=== PATIENT | female | born 1960 | race Caucasian/White ===

== ENCOUNTER 2024-11-06 00:49 | Emergency (ER) | payer BC ==
--- NOTE | 2024-11-06 02:19 | EDPHYS ---
Physician Documentation [facility] Name: Toshia Zaman Age: 64 yrs Sex: Female : 1960 Arrival Date: 11/06/2024 Time: 00:49 Bed 6 Private MD: ED Physician Zachery Corrigan HPI: 11/06 02:01 This 64 yrs old Female presents to ER via Wheelchair with complaints of Altered Mental bo1 Status. 02:01 The patient presents with agitation, After being seen \\T\\ [facility] milligan for a migraine SAN bo1 and treated. Records reviewed. . Onset: The symptoms/episode began/occurred suddenly, after being treated with various meds IV. The pt was taken from [facility] by the sister who did not feel that care was being done timely. 02:07 Possible causes: Abnl MRI - recently done showing lots of "black spots" and progressive bo1 vision decline. Pt also sleeps with the TV or phone being on all the time. She wears protective lenses in a dark bedroom. . Associated signs and symptoms: Pertinent positives: agitation, Initially some hallucinations this PM with dx of dementia/Alzheimer's. Pt lives with sister - caregiver. Hx of gastric bypass and malnutrition.. Current symptoms: In the emergency department the patient's symptoms have resolved. See [facility] MAR: Ativan, ketorolac, morphine. zofran and reglan IV given tonight 6-7pm. Historical: - Allergies: 01:13 No Known Allergies; bm8 - Home Meds: :13 Unable to obtain [Active]; bm8 - PMHx: :13 Unable to Obtain; bm8 - PSHx: :13 Unable to Obtain; bm8 - Immunization history:: Adult Immunizations up to date. - Infectious Disease History:: Denies. - Social history:: Smoking status: Patient denies any tobacco usage or history of. ROS: 02:11 Constitutional: Negative for fever, chills, and weight loss bo1 02:11 Eyes: Positive for blurry vision, visual disturbance, Hx of same/chronic nature, wears reading glasses, 02:11 Neck: Negative for pain with movement, pain at rest, 02:11 Cardiovascular: Negative for chest pain, 02:11 Respiratory: Negative for shortness of breath, 02:11 Skin: Negative for rash, 02:11 Neuro: Positive for headache, Was the reason to be seen at [facility]. Now resolved, 02:11 All other systems are negative, Exam: 02:13 Constitutional: This is a well developed, well nourished patient who is in no acute bo1 distress. 02:13 Constitutional: The patient appears in no acute distress, comfortable, Asleep but arousable 02:13 Head/face: Exam is negative for acute changes, 02:13 Eyes: Pupils: no acute changes, equal, \\T\\ 3 mm, 02:13 Cardiovascular: Rate: normal, Rhythm: regular, Pulses: no pulse deficits are appreciated, 02:13 Respiratory: the patient does not display signs of respiratory distress, Respirations: normal, Breath sounds: are clear throughout, 02:13 Musculoskeletal/extremity: Swelling, tenderness is absent. 02:13 Skin: no rash present. 02:13 Neuro: Abnormal movements: there are no abnormal movements, Pt now at baseline and much more comfortable after leaving [facility] times 2nd visit from the waiting room, Vital Signs: 01:11 BP 117 / 64; Pulse 75; Resp 18; Temp 97.5; Pulse Ox 97% ; Weight 64.86 kg; Height 5 ft. bm8 3 in. ; Pain 0/10; 02:27 BP 124 / 66; Pulse 64; Resp 18; Temp 97.5; Pulse Ox 92% ; Pain 0/10; bm8 01:11 Body Mass Index 25.33 (64.86 kg, 160.02 cm) bm8 01:11 Pain Scale: Adult bm8 02:27 Pain Scale: Adult bm8 [place] Coma Score: 01:13 Eye Response: to voice(3). Motor Response: obeys commands(6). Verbal Response: bm8 oriented(5). Total: 14. 02:27 Eye Response: spontaneous(4). Motor Response: obeys commands(6). Verbal Response: bm8 oriented(5). Total: 15. MDM: 02:00 Medical Screening Exam initiated bo1 02:15 Differential Diagnosis: Medication reaction/side effect. Migraine SAN. Dementia or bo1 Alzheimer's exacerbation.. Data reviewed: vital signs, diagnostic data from outside facility. ED course: Due to pt now at her usual baseline. She is to be returned home with sister in care of her as agreed upon. Meds are to be allowed to wear off. Administered Medications: No medications were administered Disposition Summary: 11/06/24 02:18 Discharge Ordered Notes: Location: Home bo1 Problem: new bo1 Symptoms: have improved bo1 Condition: Stable bo1 Diagnosis - Altered mental status, unspecified bo1 Followup: bo1 - With: Private Physician - When: Upon discharge from the Emergency Department - Reason: Recheck today's complaints, Continuance of care Discharge Instructions: - Discharge Summary Sheet bo1 - Confusion bo1 Forms: - Medication Reconciliation Form bo1 - Antibiotic Education bo1 - Prescription Opioid Use bo1 - Patient Portal Instructions bo1 - Leadership Thank You Letter bo1 Signatures: Zachery Corrigan MD MD bo1 Zachariah Pastrana RN RN bm8
--- NOTE | 2024-11-06 02:19 | ER ---
Nurse's Notes [facility] Name: Toshia Zaman Age: 64 yrs Sex: Female : 1960 Arrival Date: 11/06/2024 Time: 00:49 Bed 6 Private MD: Diagnosis: Altered mental status, unspecified Presentation: 11/06 01:13 Chief complaint: sister states she was at [facility] for a migraine, was given a bunch vc1 of medications. Once we got home she started hallucinating saying she didn't know where she was, complaining of stomach pain and that she was nauseous. Coronavirus screen: Client denies travel out of the [place] in the last 14 days. At this time, the client does not indicate any symptoms associated with coronavirus-19. Ebola Screen: Patient negative for fever greater than or equal to 101.5 degrees Fahrenheit, and additional compatible Ebola Virus Disease symptoms Patient denies exposure to infectious person. Patient denies travel to an Ebola-affected area in the 21 days before illness onset. No symptoms or risks identified at this time. Initial Sepsis Screen: Does the patient meet any 2 criteria? No. Patient's initial sepsis screen is negative. Does the patient have a suspected source of infection? No. Patient's initial sepsis screen is negative. Risk Assessment: Do you want to hurt yourself or someone else? Patient reports no desire to harm self or others. Onset of symptoms was November 06, 2024. Care prior to arrival: Medication(s) given: 1L NS, Ativan 2mg, Ketoralac 60 mg, Morphine 4mg IVP, zofran 4 mg, Reglan 10mg IVPB. Activity prior to arrival: None. Mechanism of Injury: No Mechanism of Injury. Transition of care: patient was not received from another setting of care. 01:13 Method Of Arrival: Wheelchair vc1 01:13 Acuity: YOAN 4 vc1 Triage Assessment: General: Appears in no apparent distress. slender, well groomed, well developed, well vc1 nourished, Behavior is cooperative, flat, quiet. Pain: Denies pain. EENT: No deficits noted. No signs and/or symptoms were reported regarding the EENT system. Neuro: Level of Consciousness is awake, alert, obeys commands, Oriented to person, place, time, situation, Appropriate for age. Cardiovascular: Capillary refill < 3 seconds Patient's skin is warm and dry. Respiratory: Airway is patent Respiratory effort is even, unlabored, Respiratory pattern is regular, symmetrical. GI: Patient currently denies nausea, pain, vomiting. : No deficits noted. No signs and/or symptoms were reported regarding the genitourinary system. Derm: Skin is intact, is healthy with good turgor, Skin is dry, Skin is normal, Skin temperature is warm. Musculoskeletal: No deficits noted. No signs and/or symptoms reported regarding the musculoskeletal system. Historical: - Allergies: : No Known Allergies; bm8 - Home Meds: : Unable to obtain [Active]; bm8 - PMHx: Unable to Obtain; bm8 - PSHx: : Unable to Obtain; bm8 - Immunization history:: Adult Immunizations up to date. - Infectious Disease History:: Denies. - Social history:: Smoking status: Patient denies any tobacco usage or history of. Screenin: [facility] ED Fall Risk Assessment (Adult) History of falling in the last 3 months, bm8 including since admission No falls in past 3 months (0 pts) Confusion or Disorientation No (0 pts) Intoxicated or Sedated No (0 pts) Impaired Gait No (0 pts) Mobility Assist Device Used No (0 pt) Altered Elimination No (0 pt) Score/Fall Risk Level 0 - 2 = Low Risk Oriented to surroundings, Maintained a safe environment, Educated pt \T\ family on fall prevention, incl call for assistance when getting out of bed, Assessed \T\ reinforced patient's understanding of fall precautions, Hourly rounding (assess needs \T\ fall precautionary measures) done, Used ambulatory aids as needed (educated on \T\ assisted with), Used gait belt as appropriate. Abuse screen: Denies threats or abuse. Nutritional screening: No deficits noted. Tuberculosis screening: No symptoms or risk factors identified. Assessment: :11 Reassessment: Patient appears in no apparent distress at this time. Patient and/or bm8 family updated on plan of care and expected duration. Pain level reassessed. Patient denies pain at this time. Patient states feeling better. Patient states symptoms have improved. General: Appears in no apparent distress. comfortable, Behavior is calm, cooperative, appropriate for age. Pain: Denies pain. Neuro: No deficits noted. Level of Consciousness is alert, obeys commands, Oriented to person, place, time, situation, Appropriate for age Facilities Engineer are equal bilaterally Moves all extremities. Full function Speech is normal, Facial symmetry appears normal, Pupils are PERRLA, Pupil Size: 3 mm. Cardiovascular: No deficits noted. Capillary refill < 3 seconds in bilateral fingers Patient's skin is warm and dry. Respiratory: Airway is patent Trachea midline Respiratory effort is even, unlabored, Respiratory pattern is regular, symmetrical. GI: Patient currently denies abdominal pain, nausea, pain, vomiting. : No signs and/or symptoms were reported regarding the genitourinary system. Denies burning with urination, pain urinary frequency. EENT: No signs and/or symptoms were reported regarding the EENT system. Derm: No signs and/or symptoms reported regarding the dermatologic system. Derm: No signs and/or symptoms reported regarding the dermatologic system. Musculoskeletal: No signs and/or symptoms reported regarding the musculoskeletal system. 02:27 Reassessment: Patient appears in no apparent distress at this time. No changes from bm8 previously documented assessment. Patient and/or family updated on plan of care and expected duration. Pain level reassessed. Patient denies pain at this time. Patient states feeling better. Patient states symptoms have improved. Vital Signs: 01:11 BP 117 / 64; Pulse 75; Resp 18; Temp 97.5; Pulse Ox 97% ; Weight 64.86 kg; Height 5 ft. bm8 3 in. ; Pain 0/10; 02:27 BP 124 / 66; Pulse 64; Resp 18; Temp 97.5; Pulse Ox 92% ; Pain 0/10; bm8 01:11 Body Mass Index 25.33 (64.86 kg, 160.02 cm) bm8 01:11 Pain Scale: Adult bm8 02:27 Pain Scale: Adult bm8 [place] Coma Score: 01:13 Eye Response: to voice(3). Motor Response: obeys commands(6). Verbal Response: bm8 oriented(5). Total: 14. 02:27 Eye Response: spontaneous(4). Motor Response: obeys commands(6). Verbal Response: bm8 oriented(5). Total: 15. ED Course: 00:54 Patient arrived in ED. vc1 01:10 Zachariah Pastrana, RN is Primary Nurse. bm8 01:13 Patient has correct armband on for positive identification. Bed in low position. Call bm8 light in reach. Side rails up X2. Adult w/ patient. Client placed on continuous cardiac and pulse oximetry monitoring. NIBP monitoring applied. Pulse ox on. NIBP on. Door closed. Noise minimized. Warm blanket given. Pillow given. Verbal reassurance given. Head of bed elevated. 01:13 No provider procedures requiring assistance completed. Patient maintains SpO2 bm8 saturation greater than 95% on room air. 01:22 Triage completed. vc1 01:22 Arm band placed on right wrist. vc1 01:25 Zachery Corrigan MD is Attending Physician. al5 02:27 Provided Education on: post er care. bm8 02:27 Patient did not have IV access during this emergency room visit. bm8 Administered Medications: No medications were administered Medication: 01:13 VIS not applicable for this client. bm8 Outcome: 02:18 Discharge ordered by . bo1 02:27 Discharged to home via wheelchair, with family, bm8 02:27 Condition: stable 02:27 Discharge instructions given to patient, family, Instructed on discharge instructions, follow up and referral plans. no drinking with medication, no driving heavy equipment, medication usage, safety practices, Demonstrated understanding of instructions, follow-up care, medications, 02:28 Patient left the ED. bm8 Signatures: Yenny Mcnally RN RN vc1 Zachery Corrigan MD MD bo Zachariah Pastrana, RN RN bm8 Rupal Ahmadi RN RN al5
[2024-11-06 02:33] VITALS: TEMP 97.5
[2024-11-06 02:35] VITALS: BP 124/66; O2SAT 92
== END 2024-11-06 02:28 | disposition home or self-care (01) ==
LOC: ER 00:49
DX: R41.82 Altered mental status, unspecified (principal); R45.1 Restlessness and agitation; R51.9 Headache, unspecified
CPT/HCPCS: 99283

== ENCOUNTER 2025-01-06 18:15 | Emergency (ER) | payer BC ==
[2025-01-06] MEDS ORDERED: ONDANSETRON 4 MG/2 ML VIAL ONE ×2 (20:11→21:36)
[2025-01-06] MEDS ORDERED: dexAMETHasone 10 MG/ML VIAL ONE (20:12)
[2025-01-06] MEDS ORDERED: KETOROLAC 30 MG/ML INJ ONE (20:12)
[2025-01-06] MEDS ORDERED: NA CHLORIDE 0.9% 1,000 ML ONE (20:12)
--- NOTE | 2025-01-06 21:33 | EDPHYS ---
Physician Documentation [facility] Name: Toshia Zaman Age: 64 yrs Sex: Female : 1960 Arrival Date: 01/06/2025 Time: 18:15 Bed DX4 Private MD: ED Physician Da Baires HPI: 01/06 19:06 This 64 yrs old Female presents to ER via Ambulatory with complaints of SAN. rn 19:06 The patient complains of pain to the top of head and forehead. The patient describes rn the headache as aching. Onset: The symptoms/episode began/occurred today. Associated signs and symptoms: Pertinent positives: Photophobia Pertinent negatives: fever, neck stiffness. Severity of symptoms: At its worst the pain was moderate, "similar to past headaches", in the emergency department the pain is unchanged. The patient has experienced similar episodes in the past. Patient reports having migraine headache. Has history of chronic migraines. Her trigger is light and flashing lights from TV. Daughter states has been watching a lot of TV lately and thinks triggered one of her migraines. Headache is identical to previous migraines. Has seen neurology as well as retinal specialist for these migraines. No fever or chills. No neck stiffness. No focal neurological deficit. Reports nausea. No chest pain. Daughter agrees that this is identical to previous migraines.. Historical: - Allergies: 18:34 No Known Allergies; ap3 - PMHx: 18:34 Dementia; ap3 18:35 Hypothyroidism; ap3 - PSHx: 18:34 stomach bypass sx-2009; ap3 - Immunization history:: Client reports having NOT received the Covid vaccine. Flu vaccine is not up to date. - Infectious Disease History:: Denies. - Social history:: Smoking status: Patient denies any tobacco usage or history of. - Family history:: not pertinent. - Hospitalizations: : No recent hospitalization is reported. ROS: 19:06 Constitutional: Negative for fever, chills, and weight loss, Cardiovascular: Negative rn for chest pain, palpitations, and edema, Respiratory: Negative for shortness of breath, cough, wheezing, and pleuritic chest pain, Abdomen/GI: Positive for nausea, negative for abdominal pain : Negative for injury, bleeding, discharge, and swelling, MS/Extremity: Negative for injury and deformity, Neuro: Positive for headache Exam: 19:06 Constitutional: This is a well developed, well nourished patient who is awake, alert, rn and in no acute distress. Holding emesis bag that is empty Head/Face: Normocephalic, atraumatic. Eyes: Pupils equal round and reactive to light, extra-ocular motions intact. Neck: No meningismus Cardiovascular: Regular rate and rhythm. No pulse deficits. Respiratory: No increased work of breathing, no retractions or nasal flaring. MS/ Extremity: Pulses equal, no cyanosis. Neurovascular intact. Full, normal range of motion. Equal circumference. Neuro: Awake and alert, GCS 15, oriented to person, place. Cranial nerves II-XII grossly intact. Motor strength 5/5 in all extremities. Sensory grossly intact. Cerebellar exam normal. Normal gait. Vital Signs: 18:31 BP 123 / 71; Pulse 68; Resp 19; Temp 97.9; Pulse Ox 98% on R/A; Weight 64.86 kg; ap3 21:25 BP 116 / 58; Pulse 71; Resp 18 S; Pulse Ox 97% on R/A; Pain 7/10; br2 21:25 Pain Scale: Adult br2 MDM: 18:45 Medical Screening Exam initiated rn 01/07 00:31 Differential diagnosis: Migraine headache. Data reviewed: vital signs, nurses notes. I rt considered the following discharge prescriptions or medication management in the emergency department Medications were administered in the Emergency Department. See MAR. Test considered but Not performed: CT: Consistent with previous migraines, CT scan of the head is not indicated. Care significantly affected by the following chronic conditions: Dementia. Counseling: I had a detailed discussion with the patient and/or guardian regarding the historical points, exam findings, and any diagnostic results supporting the discharge/admit diagnosis, the need for outpatient follow up, to return to the emergency department if symptoms worsen or persist or if there are any questions or concerns that arise at home. Response to treatment: the patient's symptoms have markedly improved after treatment. 01/06 18:52 Order name: IV Start; Complete Time: 20:37 rn Administered Medications: 01/06 20:37 Drug: Ondansetron IVP 4 mg IVP once; over 2 minutes Route: IVP; Site: left hand; br2 21:58 Follow up: Response: No adverse reaction br2 20:37 Drug: NS 0.9% IV 1000 ml IV at 1000 ml once; to be given as a bolus over 60 minutes br2 Route: IV; Rate: 1000 ml; Site: left hand; 21:58 Follow up: IV Status: Completed infusion; IV Intake: 1000ml br2 20:37 Drug: Decadron - Dexamethasone IVP 10 mg IVP once Route: IVP; Site: left hand; br2 21:58 Follow up: Response: No adverse reaction br2 20:37 Drug: Ketorolac IVP 15 mg IVP once Route: IVP; Site: left hand; br2 21:15 Follow up: Response: No adverse reaction br2 21:42 Drug: Ondansetron IVP 4 mg IVP once; over 2 minutes Route: IVP; Site: left hand; br2 21:59 Follow up: Response: No adverse reaction br2 21:42 Not Given (Duplicate Order): ondansetron 4 mg IVP once; over 2 minutes br2 21:59 Drug: Tylenol PO Liquid 1000 mg PO once; not to exceed 1,000 milligrams Route: PO; br2 22:19 Follow up: Response: No adverse reaction br2 Disposition Summary: 01/06/25 21:32 Discharge Ordered Notes: Location: Home rt Problem: new rt Symptoms: have improved rt Condition: Stable rt Diagnosis - Migraine without aura, not intractable rt Followup: rt - With: Private Physician - When: 2 - 3 days - Reason: Discharge Instructions: - Discharge Summary Sheet rt - Migraine Headache rt Forms: - Medication Reconciliation Form rt - Antibiotic Education rt - Prescription Opioid Use rt - Patient Portal Instructions rt - Leadership Thank You Letter rt Signatures: Toño Buck MD MD rn Prokisch, Amanda RN RN ap3 Da Baires MD MD rt Iveth Waters RN RN br2
--- NOTE | 2025-01-06 21:33 | ER ---
Nurse's Notes [facility] Name: Toshia Zaman Age: 64 yrs Sex: Female : 1960 Arrival Date: 01/06/2025 Time: 18:15 Bed DX4 Private MD: Diagnosis: Migraine without aura, not intractable Presentation: 01/06 18:31 Chief complaint: Patient's son or daughter states: patient has a history of migraines ap3 and will get them when watching TV. patient was watching TV today, and then she started staying "I don't feel good, I don't feel good. My throat is closing up.". Patient's daughter states that the patient is only supposed to watch "a couple of hours of TV a day, but has been watching a lot of TV the last two days, which will give her a migraine.". Coronavirus screen: At this time, the client does not indicate any symptoms associated with coronavirus-19. Ebola Screen: No symptoms or risks identified at this time. Initial Sepsis Screen: Does the patient meet any 2 criteria? No. Patient's initial sepsis screen is negative. Does the patient have a suspected source of infection? No. Patient's initial sepsis screen is negative. Risk Assessment: Do you want to hurt yourself or someone else? Patient reports no desire to harm self or others. Onset of symptoms was January 06, 2025. 18:31 Method Of Arrival: Ambulatory ap3 18:31 Acuity: YOAN 3 ap3 Triage Assessment: 18:36 General: Appears uncomfortable, Behavior is appropriate for age, restless. Pain: Denies ap3 pain. Respiratory: Reports difficulty swallowing Onset: The symptoms/episode began/occurred today. 18:38 Neuro: Reports. Neuro: Oriented to person, place, situation, patient has a history of ap3 dementia. is oriented to person, place and situation. . GI: patient actively making herself vomit. patient reports that is the only way to make herself feel better. Historical: - Allergies: 18:34 No Known Allergies; ap3 - PMHx: 18:34 Dementia; ap3 18:35 Hypothyroidism; ap3 - PSHx: 18:34 stomach bypass sx-2009; ap3 - Immunization history:: Client reports having NOT received the Covid vaccine. Flu vaccine is not up to date. - Infectious Disease History:: Denies. - Social history:: Smoking status: Patient denies any tobacco usage or history of. - Family history:: not pertinent. - Hospitalizations: : No recent hospitalization is reported. Screenin:37 Abuse screen: Denies threats or abuse. Nutritional screening: No deficits noted. ap3 Tuberculosis screening: No symptoms or risk factors identified. 21:25 [facility] ED Fall Risk Assessment (Adult) History of falling in the last 3 months, br2 including since admission No falls in past 3 months (0 pts) Confusion or Disorientation No (0 pts) Intoxicated or Sedated No (0 pts) Impaired Gait No (0 pts) Mobility Assist Device Used No (0 pt) Altered Elimination Score/Fall Risk Level 0 - 2 = Low Risk Oriented to surroundings. Assessment: 18:39 Respiratory: Airway is patent. ap3 21:25 Reassessment: Patient and/or family updated on plan of care and expected duration. Pain br2 level reassessed. Patient is alert, oriented x 3, equal unlabored respirations, skin warm/dry/pink. Patient states feeling better. Patient states symptoms have improved. Vital Signs: 18:31 BP 123 / 71; Pulse 68; Resp 19; Temp 97.9; Pulse Ox 98% on R/A; Weight 64.86 kg; ap3 21:25 BP 116 / 58; Pulse 71; Resp 18 S; Pulse Ox 97% on R/A; Pain 7/10; br2 21:25 Pain Scale: Adult br2 ED Course: 18:16 Patient arrived in ED. im 18:34 Triage completed. ap3 18:39 Arm band placed on left wrist. ap3 18:45 Toño Buck MD is Attending Physician. rn 19:10 Rupal Duran RN is Primary Nurse. ap3 20:36 Attending Physician role handed off by Toño Buck MD rt 20:36 Da Baires MD is Attending Physician. rt 20:46 Inserted saline lock: 20 gauge in left hand, using aseptic technique. Blood collected. br2 Flushed with 10 mL NS. 21:25 Patient has correct armband on for positive identification. Provided Education on: PLAN br2 OF CARE. 22:19 No provider procedures requiring assistance completed. IV discontinued, intact, br2 bleeding controlled, No redness/swelling at site. Pressure dressing applied. Administered Medications: 20:37 Drug: Ondansetron IVP 4 mg IVP once; over 2 minutes Route: IVP; Site: left hand; br2 21:58 Follow up: Response: No adverse reaction br2 20:37 Drug: NS 0.9% IV 1000 ml IV at 1000 ml once; to be given as a bolus over 60 minutes br2 Route: IV; Rate: 1000 ml; Site: left hand; 21:58 Follow up: IV Status: Completed infusion; IV Intake: 1000ml br2 20:37 Drug: Decadron - Dexamethasone IVP 10 mg IVP once Route: IVP; Site: left hand; br2 21:58 Follow up: Response: No adverse reaction br2 20:37 Drug: Ketorolac IVP 15 mg IVP once Route: IVP; Site: left hand; br2 21:15 Follow up: Response: No adverse reaction br2 21:42 Drug: Ondansetron IVP 4 mg IVP once; over 2 minutes Route: IVP; Site: left hand; br2 21:59 Follow up: Response: No adverse reaction br2 21:42 Not Given (Duplicate Order): ondansetron 4 mg IVP once; over 2 minutes br2 21:59 Drug: Tylenol PO Liquid 1000 mg PO once; not to exceed 1,000 milligrams Route: PO; br2 22:19 Follow up: Response: No adverse reaction br2 Intake: 21:58 IV: 1000ml; Total: 1000ml. br2 Outcome: 21:32 Discharge ordered by . rt 22:19 Discharged to home ambulatory, br2 22:19 Condition: stable 22:19 Discharge instructions given to patient, Instructed on discharge instructions, follow up and referral plans. Demonstrated understanding of instructions, follow-up care, 22:26 Patient left the ED. br2 Signatures: Toño Buck MD MD rn Prokisch, Amanda, RN RN ap3 Da Baires MD MD rt Jaycee Castellano Belinda, RN RN br2 Corrections: (The following items were deleted from the chart) 18:39 18:36 Neuro: Level of Consciousness is awake, alert, Oriented to person, place, time, ap3 situation, Appropriate for age Reports headache ap3
[2025-01-06] MEDS ORDERED: ACETAMINOPHEN 160 MG/5 ML UCUP ONE (21:34)
[2025-01-07 10:51] VITALS: TEMP 97.9
[2025-01-07 10:52] VITALS: BP 116/58; O2SAT 97
== END 2025-01-06 22:26 | disposition home or self-care (01) ==
LOC: ER 18:15
DX: G43.009 Migraine without aura, not intractable, without status migrainosus (principal); F03.90 Unspecified dementia, unspecified severity, without behavioral disturbance, psychotic disturbance, mood disturbance, and anxiety; E03.9 Hypothyroidism, unspecified
CPT/HCPCS: J1100; J2405 ×2; J7030; 96361; 96374; 96375; 99284

== ENCOUNTER 2025-01-09 15:58 | Emergency (ER) | payer BC ==
--- NOTE | 2025-01-09 18:44 | RAD REPORT ---
EXAMINATION: CT HEAD WITHOUT CONTRAST CLINICAL INDICATION: Female, 64 years old.HEADACHE TECHNIQUE: Axial CT images from the skull base to the vertex without intravenous contrast. Coronal an d sagittal reformatted images were created from the data set. One or more of the following dose reduction techniques were used: Automated exposure control, adjustment of the mA and/or kV according to patient size, and/or iterative reconstruction. Unless otherwise specified, incidental findings do not require dedicated imaging follow-up. [id number]. COMPARISON: No prior exam. FINDINGS: INTRACRANIAL: No acute intracranial hemorrhage. No hydrocephalus. No mass effect or midline shift. No significant white matter disease.Age advanced cerebral atrophy. VASCULATURE: No visualized abnormalities in the arteries or dural venous sinuses. SCALP/SKULL: No significant soft tissue or osseous abnormalities. SINUSES: The visualized paranasal sinuses and mastoid air cells are predominantly clear. IMPRESSION: No acute intracranial abnormality.
[2025-01-09 19:51] LABS: Absolute Basophils 0.1 K/uL (0-0.5); Absolute Eosinophils 0.1 K/uL (0-0.5); Absolute Lymphocytes (CBC) 2.1 K/uL (0.7-4.9); Absolute Monocytes 0.5 K/uL (0.1-1.3); Absolute Neutrophil 3.1 K/uL (1.8-8.0); Basophils % 1.1 % (0-1.3); Eosinophils % 2.2 % (0-4.4); Hematocrit 43.3 % (36.0-45.0); Hemoglobin 14.9 g/dL (12.0-15.0); MCH 32.3 pg (27.0-35.0); MCHC 34.3 g/dL (32.0-36.0); MPV 6.9 fL (7.6-11.3); Monocytes % 7.9 % (3.3-12.3); Neutrophils % 52.8 % (41.7-73.7); Nucleated Red Blood Cells % 0.1 % (0-0); Platelets 272 thou/uL (152-406); RBC Red Blood Cell Count 4.61 M/uL (3.86-4.86); Red Cell Distribution Width 13.4 % (12.1-15.2)
[2025-01-09 20:04] LABS: Anion Gap 7.5 mEq/L (5.0-15.0); Potassium 3.5 mEq/L (3.5-5.1)
[2025-01-09] MEDS ORDERED: droPERidol 5 MG/2 ML VIAL ONE (20:09)
[2025-01-09] MEDS ORDERED: NA CHLORIDE 0.9% 1,000 ML ONE (20:09)
[2025-01-09] MEDS ORDERED: DIPHENHYDRAMINE 50 MG/ML VIAL ONE (20:09)
--- NOTE | 2025-01-09 20:26 | EDPHYS ---
Physician Documentation [facility] Name: Toshia Zaman Age: 64 yrs Sex: Female : 1960 Arrival Date: 01/09/2025 Time: 15:58 Bed DX1 Private MD: ED Physician Som Coffey HPI: 01/09 17:13 This 64 yrs old Female presents to ER via Ambulatory with complaints of ec2 Headache. 17:13 Patient arrives today for evaluation of a headache. Patient reports that she has been ec2 experiencing headache for the past several days and was recently seen here in diagnosed with migraine. Patient reports headache that is generalized. Denies any nausea or vomiting. Denies any urinary complaints.. Historical: - Allergies: 17:02 No Known Allergies; ap3 - PMHx: 17:02 Dementia; Hypothyroidism; Migraine; ap3 - PSHx: 17:02 stomach bypass sx-2009; ap3 - Immunization history:: Adult Immunizations up to date. - Infectious Disease History:: Denies. - Social history:: Smoking status: Patient denies any tobacco usage or history of. ROS: 17:13 Constitutional: as per hpi ec2 Exam: 17:13 Constitutional: GEN: NAD Head: atraumatic Eyes: EOMI Ears: External ears are ec2 normal. CV: regular rate LUNGS: no respiratory distress ABD: non-distended SKIN: no evidence of rashes MSK: no evidence of trauma. Neuro: Cranial nerves II through XII and strength intact. Vital Signs: 17:00 BP 124 / 64; Pulse 64; Resp 17; Temp 98.1; Pulse Ox 97% ; Weight 52.16 kg; Pain 9/10; ap3 21:00 BP 131 / 78; Pulse 68; Resp 17 S; Pulse Ox 98% on R/A; ha1 17:00 Pain Scale: Adult ap3 MDM: 17:05 Medical Screening Exam initiated ec2 17:13 Data reviewed: vital signs, nurses notes. ED course: Patient arrives today for ec2 evaluation of a headache. Examination is revealing for an intact neurologic exam. Will obtain lab work, CT imaging. Differential includes processes such as intracranial mass, headache syndrome.. 20:13 ED course: Labs are nonactionable. On reassessment patient is well-appearing no acute ec2 distress.. 01/09 17:10 Order name: CBC with Diff; Complete Time: 20:00 ec2 01/09 17:10 Order name: BMP; Complete Time: 20:12 ec2 01/09 17:10 Order name: UAM; Complete Time: 20:35 ec2 01/09 17:06 Order name: CT Head Brain wo Cont; Complete Time: 18:44 ec2 01/09 17:10 Order name: IV; Complete Time: 19:49 ec2 Administered Medications: 20:00 Drug: NS 0.9% IV 1000 ml IV at 1000 ml once; to be given as a bolus over 60 minutes ha1 Route: IV; Rate: 1000 ml; Site: right wrist; 21:22 Follow up: IV Status: Completed infusion; IV Intake: 1000ml ap3 20:02 Drug: Droperidol IVP 2.5 mg IVP once Route: IVP; Site: right wrist; ha1 21:22 Follow up: Response: No adverse reaction ap3 20:05 Drug: diphenhydrAMINE IVP 25 mg IVP once Route: IVP; Site: right wrist; ha1 21:22 Follow up: Response: No adverse reaction ap3 Disposition Summary: 01/09/25 20:25 Discharge Ordered Notes: Location: Home ec2 Condition: Stable ec2 Diagnosis - Headache ec2 Followup: ec2 - With: Private Physician - When: - Reason: Re-evaluation by your physician Discharge Instructions: - Discharge Summary Sheet ec2 - General Headache Without Cause ec2 Forms: - Medication Reconciliation Form ec2 - Antibiotic Education ec2 - Prescription Opioid Use ec2 - Patient Portal Instructions ec2 - Leadership Thank You Letter ec2 Prescriptions: - Compazine 10 mg Oral Tablet - take 1 tablet ORAL route every 8 hours As needed; 20 tablet; Refills: 0, ec2 Product Selection Permitted Signatures: Dispatcher [employer] Rupal Del Rosario RN RN ap3 Aleyda Winston RN RN ha1 Som Coffey MD MD ec2 Corrections: (The following items were deleted from the chart) 20:29 17:10 Stanley ordered. ec2 ha1
--- NOTE | 2025-01-09 20:26 | ER ---
Nurse's Notes [facility] Name: Toshia Zaman Age: 64 yrs Sex: Female : 1960 Arrival Date: 01/09/2025 Time: 15:58 Bed DX1 Private MD: Diagnosis: Headache Presentation: 01/09 17:00 Chief complaint: Patient states: she is having continued headache from the other day ap3 that isn't improving. patient currently rates her pain as a 10/10 on the pain scale. Coronavirus screen: At this time, the client does not indicate any symptoms associated with coronavirus-19. Ebola Screen: No symptoms or risks identified at this time. Initial Sepsis Screen: Does the patient meet any 2 criteria? No. Patient's initial sepsis screen is negative. Does the patient have a suspected source of infection? No. Patient's initial sepsis screen is negative. Risk Assessment: Do you want to hurt yourself or someone else? Patient reports no desire to harm self or others. Onset of symptoms is unknown. 17:00 Method Of Arrival: Ambulatory ap3 17:00 Acuity: YOAN 3 ap3 Triage Assessment: 17:03 Headache History: The patient has had previous headaches. General: Appears in no ap3 apparent distress. Behavior is calm, cooperative, appropriate for age. Pain: Complains of pain in head Pain currently is 10 out of 10 on a pain scale. Pain began gradually. Pain: Also complains of no other associated symptoms. Neuro: Level of Consciousness is awake, alert, obeys commands, Oriented to person, place, time, situation, Appropriate for age. Cardiovascular: Patient's skin is warm and dry. Respiratory: Airway is patent Respiratory effort is even, unlabored, Respiratory pattern is regular, symmetrical. Historical: - Allergies: 17:02 No Known Allergies; ap3 - PMHx: 17:02 Dementia; Hypothyroidism; Migraine; ap3 - PSHx: 17:02 stomach bypass sx-2009; ap3 - Immunization history:: Adult Immunizations up to date. - Infectious Disease History:: Denies. - Social history:: Smoking status: Patient denies any tobacco usage or history of. Screenin:04 [facility] ED Fall Risk Assessment (Adult) History of falling in the last 3 months, ap3 including since admission No falls in past 3 months (0 pts) Confusion or Disorientation No (0 pts) Intoxicated or Sedated No (0 pts) Impaired Gait No (0 pts) Mobility Assist Device Used No (0 pt) Altered Elimination No (0 pt) Score/Fall Risk Level 0 - 2 = Low Risk Oriented to surroundings, Maintained a safe environment, Educated pt \T\ family on fall prevention, incl call for assistance when getting out of bed, Assessed \T\ reinforced patient's understanding of fall precautions, Hourly rounding (assess needs \T\ fall precautionary measures) done, Used ambulatory aids as needed (educated on \T\ assisted with). Abuse screen: Denies threats or abuse. Nutritional screening: No deficits noted. Tuberculosis screening: No symptoms or risk factors identified. Assessment: 19:50 Reassessment: Patient and/or family updated on plan of care and expected duration. Pain ha1 level reassessed. 21:00 Reassessment: Patient and/or family updated on plan of care and expected duration. Pain ha1 level reassessed. Patient is alert, oriented x 3, equal unlabored respirations, skin warm/dry/pink. Patient denies pain at this time. Patient states feeling better. Patient states symptoms have improved. 21:00 Pain: Denies pain. ha1 Vital Signs: 17:00 BP 124 / 64; Pulse 64; Resp 17; Temp 98.1; Pulse Ox 97% ; Weight 52.16 kg; Pain 9/10; ap3 21:00 BP 131 / 78; Pulse 68; Resp 17 S; Pulse Ox 98% on R/A; ha1 17:00 Pain Scale: Adult ap3 ED Course: 16:02 Patient arrived in ED. al6 16:55 Som Coffey MD is Attending Physician. ec2 17:02 Triage completed. ap3 17:04 Arm band placed on right wrist. ap3 18:22 CT Head Brain wo Cont In Process Unspecified. EDMS 19:40 Inserted saline lock: 20 gauge in right wrist, using aseptic technique. Blood ha1 collected. Flushed with 10 mL NS. 19:49 BMP Sent. ha1 19:49 CBC with Diff Sent. ha1 21:21 Patient has correct armband on for positive identification. Adult w/ patient. ap3 21:21 Provided Education on: discharge instructions . ap3 21:21 No provider procedures requiring assistance completed. IV discontinued, intact, ap3 bleeding controlled, No redness/swelling at site. Pressure dressing applied. Administered Medications: 20:00 Drug: NS 0.9% IV 1000 ml IV at 1000 ml once; to be given as a bolus over 60 minutes ha1 Route: IV; Rate: 1000 ml; Site: right wrist; 21:22 Follow up: IV Status: Completed infusion; IV Intake: 1000ml ap3 20:02 Drug: Droperidol IVP 2.5 mg IVP once Route: IVP; Site: right wrist; ha1 21:22 Follow up: Response: No adverse reaction ap3 20:05 Drug: diphenhydrAMINE IVP 25 mg IVP once Route: IVP; Site: right wrist; ha1 21:22 Follow up: Response: No adverse reaction ap3 Medication: 21:21 VIS not applicable for this client. ap3 Intake: 21:22 IV: 1000ml; Total: 1000ml. ap3 Outcome: 20:25 Discharge ordered by . ec2 21:21 Discharged to home ambulatory, with family, ap3 21:21 Condition: good 21:21 Discharge instructions given to patient, family, Instructed on discharge instructions, follow up and referral plans. medication usage, Demonstrated understanding of instructions, follow-up care, medications, Prescriptions given X 1, 21:22 Patient left the ED. ap3 Signatures: Dispatcher [employer] Rupal Del Rosario RN RN ap3 Aleyda Winston RN RN ha1 Som Coffey MD MD ec2 Liz Gary al6
[2025-01-09 20:28] LABS: Calcium Oxalate Crystals- Ur Moderate /HPF (None Seen); Sqamous Epithelial <5 /HPF (None Seen); Urine Bacteria None Seen /HPF (<20); Urine Bilirubin NEGATIVE (Negative); Urine Blood 1+ (Negative); Urine Clarity Clear (Clear); Urine Color Yellow (Yellow); Urine Culture Reflex Order NOT NEEDED; Urine Glucose NEGATIVE (Negative); Urine Ketones NEGATIVE (Negative); Urine Micro Reflex YN NO BILL MICROSCOPIC; Urine Mucus Slight /HPF (None Seen); Urine Nitrite NEGATIVE (Negative); Urine Protein TRACE (Negative); Urine RBC <5 /HPF (None Seen); Urine Urobilinogen 2+ (Normal); Urine WBC <5 /HPF (<5); Urine WBC Clump Rare /HPF (None Seen); Urine Yeast (Budding) Trace /HPF (None Seen); Urine pH 5.5 (5.0-7.0)
[2025-01-09 21:47] VITALS: BP 124/64; TEMP 98.1; O2SAT 97
== END 2025-01-09 21:22 | disposition home or self-care (01) ==
LOC: ER 15:58
DX: R51.9 Headache, unspecified (principal)
CPT/HCPCS: 96361; 85025; 81001; 80048; 36415; 70450; 96375; 96374; 99284; J1200; J1790; J7030